=== PATIENT | male | born 1945 | race Caucasian/White ===

== ENCOUNTER 2017-03-13 20:10 | Emergency (ER) | payer OTHER ==
--- NOTE | 2017-03-13 21:32 | DIAGNOSTIC IMAGING REPORT ---
PROCEDURE: XR NASAL BONES INDICATION: TRAUMA/INJURY TECHNIQUE: Three views. COMPARISON: None. FINDINGS: Nasal bones appear normal. No evidence of fracture. There is an air-fluid level in the right maxillary sinus. While no definite fractures identified, an occult fracture might be considered. IMPRESSION: 1. Normal nasal bones. 2. Air-fluid level in the right maxillary sinus. Consider acute sinusitis or occult fracture.
--- NOTE | 2017-03-13 21:34 | DIAGNOSTIC IMAGING REPORT ---
PROCEDURE: XR KNEE 4 VIEWS - LEFT INDICATION: TRAUMA/INJURY TECHNIQUE: Four views. COMPARISON: None. FINDINGS: Findings suggest an old lateral tibial plateau fracture. There is severe degenerative changes of the medial compartment and left patellofemoral joint. Unfused ossicle of the tibial tuberosity consistent with old [place]- Schlatter disease. There is no evidence of acute fracture. IMPRESSION: 1. Findings suggest old fracture of the left lateral tibial plateau. 2. Severe degenerative changes of the left knee (medial compartment and left patellofemoral joint). 3. Old [place]-Schlatter disease. 4. No evidence of acute fracture.
--- NOTE | 2017-03-13 21:34 | DIAGNOSTIC IMAGING REPORT ---
PROCEDURE: XR KNEE 4 VIEWS - LEFT INDICATION: TRAUMA/INJURY TECHNIQUE: Four views. COMPARISON: None. FINDINGS: Findings suggest an old lateral tibial plateau fracture. There is severe degenerative changes of the medial compartment and left patellofemoral joint. Unfused ossicle of the tibial tuberosity consistent with old Nedra- Schlatter disease. There is no evidence of acute fracture. IMPRESSION: 1. Findings suggest old fracture of the left lateral tibial plateau. 2. Severe degenerative changes of the left knee (medial compartment and left patellofemoral joint). 3. Old [place]-Schlatter disease. 4. No evidence of acute fracture.
--- NOTE | 2017-03-13 21:35 | DIAGNOSTIC IMAGING REPORT ---
PROCEDURE: XR CERVICAL SPINE 2 OR 3 VIEW INDICATION: NECK TRAUMA/INJURY TECHNIQUE: Three views. COMPARISON: None. FINDINGS: There are mild degenerative changes of the facet joints with mild disc space narrowing at C6-7. Alignment is normal. No evidence of an acute process or fracture. IMPRESSION: 1. Mild degenerative changes of the cervical spine.
--- NOTE | 2017-03-13 22:02 | ED CLINICAL REPORT ---
Clinical Report - Physicians/Mid Levels [facility] [address] [place] [address] 03/13/2017 20:12 Patient: YAW PHAN Time Seen: 20:19; initial patient contact, initial documentation, patient care assumed. Arrived- By ambulance. Historian- patient and family. HISTORY OF PRESENT ILLNESS Chief Complaint: FALL. Location of injuries- nose, neck and left knee. The injury occurred just prior to arrival. Fell from a height while walking and landed on a concrete surface; tripped (tripped over curb). Occurred on a street. The patient complains of moderate pain. No blow to the head, loss of consciousness or seizure. The patient complains of neck pain. Not dazed. REVIEW OF SYSTEMS No numbness, dizziness, loss of vision, chest pain or difficulty breathing. No weakness, headache, abdominal pain or laceration. He has no pain on weight bearing. All systems otherwise negative, except as recorded above. PAST HISTORY See nurses notes. SURGERY HX: Cholecystectomy. Right knee surgery (replacement). --20:39 Juanito Hathaway R.N. PROBLEMS: Hyperlipidemia. Arthritis. --20:36 Juanito Hathaway R.N. DVT - Deep Venous Thrombosis. --20:37 Juanito Hathaway R.N. SOCIAL HISTORY Never smoker. No alcohol use or drug use. No recent travel. Is a local resident. FAMILY HISTORY No significant family medical history. ADDITIONAL NOTES The nursing notes have been reviewed with agreement regarding the chief complaint, HPI, ROS, PMH and patient medications and allergies. PHYSICAL EXAM Vital Signs: 03/13/2017 20:14 BP: 141/73. HR: 80. RR: 18. O2 saturation: 100%. Temp: 98 F. Pain level now: 8/10. Have been reviewed as normal and appear to be correct. Appearance: Alert. Oriented X3. No acute distress. Head: Head non-tender. No swelling of head. Eyes: Pupils equal, round and reactive to light. EOM intact. ENT: No dental injury. Pharynx normal. Nose: dried nasal blood on the right side and left side and mild tenderness and swelling (nose prongs on, captain room service per ems, removed during exam and left off). No laceration. No abrasion, puncture wound or deformity over the nose. No erythema, septal hematoma or foreign body. Neck: Painful ROM in the neck. Pain in the neck upon movement. No decreased ROM or muscle spasm in the neck. Tenderness present. Mild vertebral tenderness of the mid cervical spine. CVS: Heart sounds normal. Pulses normal. Respiratory: Breath sounds normal. Chest nontender. Abdomen: No visible injury. Soft and nontender. Back: No tenderness. ROM normal. Skin: Skin intact. Skin warm and dry. Normal skin color. Normal skin turgor. Extremities: Abnormal inspection. Extremities not atraumatic. Pelvis stable. Left knee: mild tenderness and small abrasion and ecchymosis located in the patella. No ligamentous laxity present. No joint effusion. No erythema, swelling, laceration, puncture wound or foreign body. No deformity. No limitation in ROM. Neurovascular not intact distally. No lower extremity edema. Neuro: Oriented X 3. No motor deficit. No sensory deficit. LABS, X-RAYS, AND EKG X-Rays: Nasal series negative. C-spine series negative. Left knee negative. The X-rays were interpreted by the radiologist and contemporaneously by me and discussed with the radiologist. Interpretation time: 21:44. The X-rays were interpreted by the radiologist and contemporaneously by me and discussed with the radiologist. Interpretation time: 21:44. The X-rays were interpreted by the radiologist and contemporaneously by me and discussed with the radiologist. Interpretation time: 21:44. PROGRESS AND PROCEDURES Course of Care: 2049. nasal prongs still off, no active bleeding, spouse at bedside and very pale and c/o of being lightheaded, bp and blood sugar checked and pt placed in wheelchair, encouraged him to check in, but he was declining. Patient counseled in person regarding the patient's stable condition, test results and diagnosis. 21:45. Differential Diagnosis: Other possible considerations: fall, head injury, fx, sprains, contusions, lacs, abrasions. Above considerations are based on history, physical exam, reassessment and X-Ray data. Differential diagnosis was discussed with patient. Disposition: Discharged home in good and improved condition (22:02). Condition: good and stable. CLINICAL IMPRESSION Fall on same level by tripping. Acute anterior, transient, mild epistaxis Acute cervical strain. Multiple contusions with abrasion to the nose and left knee. INSTRUCTIONS Apply ice for 20 minutes four times a day for two days until better. Don't apply ice directly to skin. Protect wound and keep wound area clean. Soak in warm soapy water twice daily. Apply neosporin twice daily. Elevate affected areas above chest level for two days until better. Warnings: GENERAL WARNINGS: Return or contact your physician immediately if your condition worsens or changes unexpectedly, if not improving as expected, or if other problems arise. SPECIFICALLY, return if you develop incontinence of urine (loss of bladder control). chest pain, trouble breathing, abdominal pain. Prescription Medications: Ultram 50 mg tablets: take 1-2 orally every 6 hours as needed for pain. Dispense twenty (20). No refills. Substitution is permissible. Follow-up: Follow up with your doctor in about three days even if well. Call for an appointment. Summary of care provided to patient. Understanding of the discharge instructions verbalized by patient. (Electronically signed by Cira Henriquez A.R.N.P. 03/13/2017 23:01)
--- NOTE | 2017-03-13 22:02 | ED ORDER SUMMARY ---
..... Patient: YAW PHAN OrderSheet [facility] VisitID: [id number] [place] [address] 71y, M Registration Date/Time: 03/13/2017 ORDER SHEET Weight: 72.5 kg (stated) Allergies: Unknown GENERAL ORDERS: Nasal Bones Urgent (20:32 03/13/2017 HBivens A.R.N.P.) (Ack 20:34 RKaruga) (21:26 MCampbell) Cervical Spine 2 or 3V Urgent (20:32 03/13/2017 HBivens A.R.N.P.) (Ack 20:34 RKaruga) (21:26 MCampbell) Knee 4V Left Urgent (20:32 03/13/2017 HBivens A.R.N.P.) (Ack 20:34 RKaruga) (21:26 MCampbell) MEDICATION ORDERS: Toradol IM 60 mg (NOW) (20:32 03/13/2017 HBivens A.R.N.P.) (Ack 20:40 Elana R.N.) (20:55 Elana R.N.) IV FLUIDS: ORDER SHEET NOTES: [Electronically signed by Juanito Hathaway R.N. (22:34 03/13/2017)] [Electronically signed by Cira Henriquez.R.N.P. (23:01 03/13/2017)] [Electronically locked/signed by Juanito Hathaway R.N. (22:34 03/13/2017)]
--- NOTE | 2017-03-13 22:02 | ED NURSING NOTES ---
Clinical Report - Nurses [facility] [place] [address] 03/13/2017 20:12 Patient: YAW PHAN TRIAGE Triage time 20:14. Acuity: LEVEL 3. Chief Complaint: NOSEBLEED and (nasal trauma). --20:23 Juanito Hathaway R.N. 20:14 03/13/17. BP: 141/73. HR: 80. RR: 18. O2 saturation: 100%. Temp: 98 F (oral). Pain level now: 05/18. --20:23 Juanito Hathaway R.N. Weight: 72.5 kg stated. Height/Length: 67 inches Per Patient. BMI: 25.1. --20:21 Juanito Hathaway R.N. Medications Unable to Obtain. Unknown. --20:37 Juanito Hathaway R.N. Allergies Unknown. --20:38 Juanito Hathaway R.N. History Arrived by EMS. Historian: EMS. ( GLF tripped and fell, hit her face on the cement ground. Denies LOC, injured her nose. Also c/o left lateral neck pain enroute to the hospital, left rib cage area, upper gum and left knee.). This started just prior to arrival. Treatment TAP GRINDER: (nasal clip from EMS). PAST MEDICAL HX: Unknown. Immunizations: status is unknown. --20:23 Juanito Hathaway R.N. SURGERY HX: Cholecystectomy. Right knee surgery (replacement). --20:39 Juanito Hathaway R.N. PROBLEMS: Hyperlipidemia. Arthritis. --20:36 Juanito Hathaway R.N. DVT - Deep Venous Thrombosis. --20:37 Juanito Hathaway R.N. Interventions ID band on patient. To room. --20:23 Juanito Hathaway R.N. PHYSICAL ASSESSMENT To room via stretcher. GENERAL / NEURO / PSYCH: Alert. Appears in no acute distress. Appears in pain and anxious. ( GCS 14/15, pleasantly confused (normal baseline)). Pupillary exam: Right pupil 3mm, round and briskly reactive to light directly and with accommodation. Left pupil: 3mm, round and briskly reactive to light directly and with accommodation. HEENT: ( pain on top of her head). Pupils equal, round and reactive to light. Nasal injury: tenderness and laceration with bleeding involving the bridge of the nose. Nose: tenderness, swelling, dried nasal blood and deformity. RESPIRATORY: Respirations not labored. CVS: Capillary refill less than 2 seconds. EXTREMITIES: Extremity pulses are within normal limits. Extremities exhibit normal ROM. SKIN: The patient has an superficial abrasion on the left knee. Skin is warm and dry. --20:30 Juanito Hathaway R.N. NURSING PROGRESS NOTES Cold pack applied to nose. Head of bed elevated 60 degrees. Reassurance given. Patient identifiers checked. Call light placed in reach. Side rails up x 1. Bed placed in lowest position. Brakes of bed on. Patient ready for evaluation- CIVIL RIGHTS INVESTIGATOR notified. --20:32 Juanito Hathaway R.N. 20:50 03/13/2017 Toradol (Ketorolac Tromethamine) IM 60 mg given. Given in the right deltoid and left deltoid (split dose). Allergies verified and confirmed 5 rights. --20:55 Juanito Hathaway R.N. 22:10. Reassessment after procedure and medication administered. He is calm and resting quietly. Overall patient status is improved- he states feels better. GENERAL / NEURO / PSYCH: The patient reports headache. Alert. RESPIRATORY: No respiratory distress. Breath sounds normal. CVS: Capillary refill less than 2 seconds. SKIN: Skin is warm and dry. --22:31 Juanito Hathaway R.N. DISPOSITION / DISCHARGE Condition at departure: improved. Ability to learn limited by dementia; teaching performed with the family. Discharge instructions provided and reviewed with the family (daughter). Reviewed medication(s) side effects, precautions, dosing and course information. Prescription(s) given to the blender laborer. Reviewed referral to a primary care physician for followup. Family verbalized understanding. Written instructions provided in Syriac. Verbalized understanding (daughter). The patient was discharged by the nurse practitioner. He was discharged home and accompanied by family. He left the Emergency Department in a wheelchair and via private vehicle. Family member driving. --22:33 Juanito Hathaway R.N. 22:30 03/13/17. BP: 128/76. HR: 79. RR: 16. O2 saturation: 100%. Temp: 98 F. Pain level now: cannot qualify. --22:33 Juanito Hathaway R.N. Departure time: :33. --22:33 Juanito Hathaway R.N. Locked/Released at 03/13/2017 22:34 by Juanito Hathaway R.N.
--- NOTE | 2017-03-13 22:02 | ED NURSING NOTES ---
Clinical Report - Nurses [facility] [address] 03/13/2017 20:12 Patient: YAW PHAN TRIAGE Triage time 20:14. Acuity: LEVEL 3. Chief Complaint: NOSEBLEED and (nasal trauma). --20:23 Juanito Hathaway R.N. 20:14 03/13/17. BP: 141/73. HR: 80. RR: 18. O2 saturation: 100%. Temp: 98 F (oral). Pain level now: 05/18. --20:23 Juanito Hathaway R.N. Weight: 72.5 kg stated. Height/Length: 67 inches Per Patient. BMI: 25.1. --20:21 Juanito Hathaway R.N. Medications Unable to Obtain. Unknown. --20:37 Juanito Hathaway R.N. Allergies Unknown. --20:38 Juanito Hathaway R.N. History Arrived by EMS. Historian: EMS. ( GLF tripped and fell, hit her face on the cement ground. Denies LOC, injured her nose. Also c/o left lateral neck pain enroute to the hospital, left rib cage area, upper gum and left knee.). This started just prior to arrival. Treatment SURFACE LOGGING SYSTEMS LOGGER: (nasal clip from EMS). PAST MEDICAL HX: Unknown. Immunizations: status is unknown. --20:23 Juanito Hathaway R.N. SURGERY HX: Cholecystectomy. Right knee surgery (replacement). --20:39 Juanito Hathaway R.N. PROBLEMS: Hyperlipidemia. Arthritis. --20:36 Juanito Hathaway R.N. DVT - Deep Venous Thrombosis. --20:37 Juanito Hathaway R.N. Interventions ID band on patient. To room. --20:23 Juanito Hathaway R.N. PHYSICAL ASSESSMENT To room via stretcher. GENERAL / NEURO / PSYCH: Alert. Appears in no acute distress. Appears in pain and anxious. ( GCS 14/15, pleasantly confused (normal baseline)). Pupillary exam: Right pupil 3mm, round and briskly reactive to light directly and with accommodation. Left pupil: 3mm, round and briskly reactive to light directly and with accommodation. HEENT: ( pain on top of her head). Pupils equal, round and reactive to light. Nasal injury: tenderness and laceration with bleeding involving the bridge of the nose. Nose: tenderness, swelling, dried nasal blood and deformity. RESPIRATORY: Respirations not labored. CVS: Capillary refill less than 2 seconds. EXTREMITIES: Extremity pulses are within normal limits. Extremities exhibit normal ROM. SKIN: The patient has an superficial abrasion on the left knee. Skin is warm and dry. --20:30 Juanito Hathaway R.N. NURSING PROGRESS NOTES Cold pack applied to nose. Head of bed elevated 60 degrees. Reassurance given. Patient identifiers checked. Call light placed in reach. Side rails up x 1. Bed placed in lowest position. Brakes of bed on. Patient ready for evaluation- MAGNETIC TAPE COMPOSER OPERATOR notified. --20:32 Juanito Hathaway R.N. 20:50 03/13/2017 Toradol (Ketorolac Tromethamine) IM 60 mg given. Given in the right deltoid and left deltoid (split dose). Allergies verified and confirmed 5 rights. --20:55 Juanito Hathaway R.N. 22:10. Reassessment after procedure and medication administered. He is calm and resting quietly. Overall patient status is improved- he states feels better. GENERAL / NEURO / PSYCH: The patient reports headache. Alert. RESPIRATORY: No respiratory distress. Breath sounds normal. CVS: Capillary refill less than 2 seconds. SKIN: Skin is warm and dry. --22:31 Juanito Hathaway R.N. DISPOSITION / DISCHARGE Condition at departure: improved. Ability to learn limited by dementia; teaching performed with the family. Discharge instructions provided and reviewed with the family (daughter). Reviewed medication(s) side effects, precautions, dosing and course information. Prescription(s) given to the grapple yarder operator. Reviewed referral to a primary care physician for followup. Family verbalized understanding. Written instructions provided in Greenlandic. Verbalized understanding (daughter). The patient was discharged by the nurse practitioner. He was discharged home and accompanied by family. He left the Emergency Department in a wheelchair and via private vehicle. Family member driving. --22:33 Juanito Hathaway R.N. 22:30 03/13/17. BP: 128/76. HR: 79. RR: 16. O2 saturation: 100%. Temp: 98 F. Pain level now: cannot qualify. --22:33 Juanito Hathaway R.N. Departure time: :33. --22:33 Juanito Hathaway R.N. Locked/Released at 03/13/2017 22:34 by Juanito Hathaway R.N.
--- NOTE | 2017-03-13 22:02 | ED ORDER SUMMARY ---
..... Patient: YAW PHAN OrderSheet [facility] VisitID: [id number] [place] [address] 71y, M Registration Date/Time: 03/13/2017 ORDER SHEET Weight: 72.5 kg (stated) Allergies: Unknown GENERAL ORDERS: Nasal Bones Urgent (20:32 03/13/2017 HBivens A.R.N.P.) (Ack 20:34 RKaruga) (21:26 MCampbell) Cervical Spine 2 or 3V Urgent (20:32 03/13/2017 HBivens A.R.N.P.) (Ack 20:34 RKaruga) (21:26 MCampbell) Knee 4V Left Urgent (20:32 03/13/2017 HBivens A.R.N.P.) (Ack 20:34 RKaruga) (21:26 MCampbell) MEDICATION ORDERS: Toradol IM 60 mg (NOW) (20:32 03/13/2017 HBivens A.R.N.P.) (Ack 20:40 Elana R.N.) (20:55 Elana R.N.) IV FLUIDS: ORDER SHEET NOTES: [Electronically signed by Juanito Hathaway R.N. (22:34 03/13/2017)] [Electronically signed by Cira Henriquez.R.N.P. (23:01 03/13/2017)] [Electronically locked/signed by Juanito Hathaway R.N. (22:34 03/13/2017)]
--- NOTE | 2017-03-13 23:02 | ED DISCHARGE INSTRUCTIONS ---
Patient: YAW PHAN General Instructions [facility] VisitID: [id number] [place] [address] 71y, M Registration Date/Time: 03/13/2017 Fall on same level by tripping. Acute anterior, transient, mild epistaxis Acute cervical strain. Multiple contusions with abrasion to the nose and left knee. INSTRUCTIONS Apply ice for 20 minutes four times a day for two days until better. Don't apply ice directly to skin. Protect wound and keep wound area clean. Soak in warm soapy water twice daily. Apply neosporin twice daily. Elevate affected areas above chest level for two days until better. Warnings: GENERAL WARNINGS: Return or contact your physician immediately if your condition worsens or changes unexpectedly, if not improving as expected, or if other problems arise. SPECIFICALLY, return if you develop incontinence of urine (loss of bladder control). chest pain, trouble breathing, abdominal pain. Prescription Medications: Ultram 50 mg tablets: take 1-2 orally every 6 hours as needed for pain. Dispense twenty (20). No refills. Substitution is permissible. Follow-up: Follow up with your doctor in about three days even if well. Call for an appointment. Summary of care provided to patient. Understanding of the discharge instructions verbalized by patient. ADDITIONAL INFORMATION Mechanical Fall You have had a fall today. It appears that the cause is mechanical. That means that you slipped, tripped or lost your balance. If your fall had been due to fainting or a seizure, further tests would be required. Home Care: Rest today and resume your normal activities when you are feeling back to normal. If you were injured during the fall, follow the advice from your doctor regarding care of your injury. You may use acetaminophen (Tylenol) or ibuprofen (Motrin, Advil) to control pain, unless another pain medicine was prescribed. [NOTE: If you have chronic liver or kidney disease or ever had a stomach ulcer or GI bleeding, talk with your doctor before using these medicines.] Fall Prevention: Was there anything that caused your fall that can be fixed, removed, or replaced? Make your home safe by keeping walkways clear of objects you may trip over. Use non-slip pads under rugs. Do not walk in poorly lit areas. Do not stand on chairs or wobbly ladders. Use caution when reaching overhead or looking upward. This position can cause a loss of balance. Be sure your shoes fit properly, have non-slip bottoms and are in good condition. Be cautious when going up and down curbs, and walking on uneven sidewalks. If your balance is poor, consider using a cane or walker. Stay as active as you can. Balance, flexibility, strength, and endurance all come from exercise. They all play a role in preventing falls. Follow Up with your doctor or as advised by our staff. Get Prompt Medical Attention if any of the following occur: Repeated mechanical falls, or unexplained falls Dizziness, fainting or seizure Severe headache Chest pain or shortness of breath Palpitations (very rapid or very slow or irregular heartbeat) Blood in vomit, stools (black or red color) Weakness of an arm or leg or one side of the face Difficulty with speech or vision Neck Sprain Or Strain A sudden force that causes turning or bending of the neck (such as in a car accident) can stretch or tear muscles (strain) and ligaments (sprain) and cause neck pain. Sometimes neck pain occurs after a simple awkward movement. In either case, muscle spasm is commonly present and contributes to the pain. Unless you had a forceful physical injury (for example, a car accident or fall), X-rays are usually not ordered for the initial evaluation of neck pain. If pain continues and dose not respond to medical treatment, X-rays and other tests may be performed at a later time. Home care The following guidelines will help you care for your injury at home: You may feel more soreness and spasm the first few days after the injury. Reduce your activity level until symptoms begin to improve. When lying down, use a comfortable pillow that supports the head and keeps the spine in a neutral position. The position of the head should not be tilted forward or backward. Use ice packs (ice in a plastic bag, wrapped in a towel) to treat acute pain. Apply for 20 minutes every 24 hours during the first two days. Then, begin local heat (hot shower, hot bath or heating pad) andmassageto reduce muscle spasm. Some patients feel best alternating hot and cold treatments, or just staying with one method only. Do what feels the best to you and gives the most relief. You may use acetaminophen or ibuprofen to control pain, unless another pain medicine was prescribed.If you have chronic liver or kidney disease or ever had a stomach ulcer or GI bleeding, talk with your doctor before using these medicines. Follow-up care Follow up with your physician or this facility if your symptoms do not show signs of improvement. Physical therapy may be needed. If you had X-rays today, they didnt show any broken bones, breaks, or fractures. Sometimes fractures dont show up on the first X-ray. Bruises and sprains can sometimes hurt as much as a fracture. These injuries can take time to heal completely. If your symptoms dont improve or they get worse, talk with your doctor. You may need a repeat X-ray. When to seek medical care Get prompt medical attention if any of the following occur: Pain becomes worse or spreads into your arms Weakness or numbness in one or both arms Neck Pain [No Trauma] There are several possible causes of neck pain without injury: You can get a minor ligament sprain or muscle strain from a sudden minor neck movement. Sleeping with your neck in an awkward position can also cause this. Some persons respond to emotional stress by tensing the muscles of their neck, shoulders and upper back. Chronic spasm in these muscles can cause neck pain and sometimes headaches. Gradualwear and tearof the joints in the spine can cause degenerative arthritis.This can be a source of occasional or chronic neck pain. With aging or repeated small injuries to the neck, the spinal disks (the cushions between each spinal bone) may bulge and put pressure on a nearby spinal nerve. This causes tingling, pain or numbness spreading from the neck to the shoulder, arm or hand on one side. Acute neck pain usually gets better in one to two weeks. Neck pain related to disk disease, arthritis in the spinal joints or spinal stenosis (narrowing of the spinal canal) can become chronic and last for months or years. Unless you had a forceful physical injury (for example, a car accident or fall), X-rays are usually not ordered for the initial evaluation of neck pain. If pain continues and does not respond to medical treatment, x-rays and other tests may be performed at a later time. Home Care: Rest and relax the muscles. Use a comfortable pillow that supports the head and keeps the spine in a neutral position. The position of the head should not be tilted forward or backward. A rolled up towel may help for a custom fit. Some persons find relief with heat (hot shower, hot bath or heating pad) and massage, while others prefer cold packs (crushed or cubed ice in a plastic bag, wrapped in a towel) . Try both and use the method that feels best for 20 minutes several times a day. You may use acetaminophen (Tylenol) or ibuprofen (Motrin, Advil) to control pain, unless another medicine was prescribed. [ NOTE : If you have chronic liver or kidney disease or ever had a stomach ulcer or GI bleeding, talk with your doctor before using these medicines.] Follow Up with your physician or this facility if your symptoms do not show signs of improvement after one week. Physical therapy or further tests may be needed. [NOTE: A radiologist will review any X-rays or CT scans that were taken. We will notify you of any new findings that may affect your care.] Get Prompt Medical Attention if any of the following occur: Pain becomes worse or spreads into one or both arms Weakness or numbness in one or both arms Increasing headache Neck swelling, difficulty or painful swallowing Fever of 100.4F (38C) or higher, or as directed by your healthcare provider Contusion,Soft Tissue You have a CONTUSION, which is a bruise with swelling and some bleeding under the skin. There are no broken bones. This injury takes a few days to a few weeks to heal. Home Care: 1) Keep the injured part elevated to reduce pain and swelling. This is especially important during the first 48 hours. 2) Make an ice pack (ice cubes in a plastic bag, wrapped in a towel) and apply for 20 minutes every 1-2 hours the first day. Continue this 3-4 times a day until the pain and swelling goes away. 3) You may use acetaminophen (Tylenol) or ibuprofen (Motrin, Advil) to control pain, unless another pain medicine was prescribed. [ NOTE : If you have chronic liver or kidney disease or ever had a stomach ulcer or GI bleeding, talk with your doctor before using these medicines.] Follow Up with your doctor or this facility if you are not improving within the next THREE days. [NOTE: If X-rays were taken, they will be reviewed by a radiologist. You will be notified of any new findings that may affect your care.] Get Prompt Medical Attention if any of the following occur: -- Pain or swelling increases -- Injured arm or leg becomes cold, blue, numb or tingly -- Redness, warmth or drainage from the skin Nasal Contusion You have a contusion (bruising) of the nose. There appears to be no broken bones. A contusion may cause pain, swelling, stuffiness of the nose and sometimes bleeding. Home Care: 1) Apply an ice pack to the nose for 10 minutes every 2 hours during the first 24 hours to reduce pain and swelling. Continue this four times a day for the next two days. 2) You may use acetaminophen (Tylenol) or ibuprofen (Motrin, Advil) to control pain, unless another medicine was prescribed. [ NOTE : If you have chronic liver or kidney disease or ever had a stomach ulcer or GI bleeding, talk with your doctor before using these medicines.] Talk to your doctor if you are taking aspirin or blood thinners (coumadin). These will promote nose bleeding. Your dose may need to be adjusted. 3) Avoid blowing your nose for the first two days. Then, do so gently so you don't cause bleeding. 4) Avoid alcohol and hot liquids for the next two days. Alcohol or hot liquids in your mouth can dilate blood vessels in your nose and cause bleeding. Follow Up with your doctor or as advised by our staff. If your nose appears crooked , when the swelling goes down, contact an ENT doctor (nose specialist) for an appointment within seven days of injury. [NOTE: If X-rays were taken, they will be reviewed by a radiologist. You will be notified of any new findings that may affect your care.] Get Prompt Medical Attention if any of the following occur: Bleeding from the nose that is not controlled by pinching the nostrils together for 15 minutes Increasing facial swelling, pain or redness Fever of 100.4F (38C) Unable to breathe from both sides of the nose after swelling goes down Sinus pain Repeated vomiting Severe or worsening headache or dizziness Unusual drowsiness, or unable to awaken as usual Confusion or change in behavior or speech Convulsion (seizure) Contusion:Lower Extremity You have a CONTUSION of your LOWER extremity (leg, knee, ankle, foot, or toes). This causes local pain, swelling and sometimes bruising. There are no broken bones. This injury may take from a few days to a few weeks to heal. Home Care: 1) Keep your leg elevated to reduce pain and swelling. When sleeping, place a pillow under the injured leg. When sitting, support the injured leg so it is level with your waist. This is very important during the first 48 hours. 2) If CRUTCHES have been advised, do not bear full weight on the injured leg until you can do so without pain. You may return to sports when you are able to hop and run on the injured leg without pain. 3) Apply an ice pack (ice cubes in a plastic bag, wrapped in a towel) over the injured area for 20 minutes every 1-2 hours the first day for pain relief. Continue this 3-4 times a day until the pain and swelling goes away. 4) You may use acetaminophen (Tylenol) or ibuprofen (Motrin, Advil) to control pain, unless another pain medicine was prescribed. [ NOTE : If you have chronic liver or kidney disease or ever had a stomach ulcer or GI bleeding, talk with your doctor before using these medicines.] Follow Up with your doctor or this facility if you are not starting to improve within the next THREE days. [NOTE: If X-rays were taken, they will be reviewed by a radiologist. You will be notified of any new findings that may affect your care.] Get Prompt Medical Attention if any of the following occur: -- Pain or swelling increases -- Toes become cold, blue, numb or tingly -- Redness, warmth or drainage from the skin Nosebleed [Adult] Bleeding from the nose most commonly occurs due to injury or drying and cracking of the inner lining of the nose. This can occur during a "common cold," "hay fever" attack, a very hot day, or from dry air in the winter. High blood pressure and hardening of the arteries (atherosclerosis) may also cause nosebleeds. If the bleeding site is found, it may be treated with a chemical or heat or electricity to cause a blood clot to form (cauterized). If the bleeding continues after cautery or if the bleeding site cannot be found, a packing may be placed in your nose to apply pressure and stop the bleeding. The packing may be made of gauze or sponge. A small balloon catheter is sometimes used. These need to be removed by your doctor. Some types of packing dissolve on their own. Home Care: If a packing was put in your nose, unless told otherwise, do not pull on it or try to remove it yourself. You will be given an appointment to have it removed. You may also have been given antibiotics to prevent a sinus infection. If so, complete all the medicine. Do not blow your nose for 12 hours after the bleeding stops. This will allow a strong blood clot to form. Do not pick your nose. This may restart bleeding. Avoid alcohol and hot liquids for the next two days. Alcohol or hot liquids in your mouth can dilate blood vessels in your nose and cause bleeding to start again. Do not take ibuprofen (Advil, Motrin), naprosyn (Aleve) or aspirin-containing medicines since these thin the blood and may promote nose bleeding. You may take Tylenol (acetaminophen) for pain, unless another pain medicine was prescribed. If the bleeding starts again, sit up and lean forward to prevent swallowing blood. Pinch your nose tightly for exactly 5 minutes (watch the clock). If bleeding is not controlled, continue to pinch and call your doctor or return to this facility. If high blood pressure was a cause for your nosebleed, have your blood pressure checked again tomorrow. If you have a "cold" or "hay fever" or dry nasal membranes, lubricate the nasal passages by applying a small amount of Vaseline inside the nose with a Q-tip twice a day (morning and night). Avoid overheating your home, which can dry the air and worsen your condition. Follow Up with your doctor as advised for packing removal. Nasal packing should be rechecked or removed within 2-3 days. Get Prompt Medical Attention if any of the following occur: Another nosebleed that you cannot control Dizziness, weakness or fainting Fever of 100.4F (38C) or higher, or as directed by your healthcare provider Headache Sinus or facial pain Shortness of breath or trouble breathing Tramadol Hydrochloride Oral tablet What is this medicine? TRAMADOL (TRA ma dole) is a pain reliever. It is used to treat moderate to severe pain in adults. How should I use this medicine? Take this medicine by mouth with a full glass of water. Follow the directions on the prescription label. If the medicine upsets your stomach, take it with food or milk. Do not take more medicine than you are told to take. Talk to your book editor regarding the use of this medicine in children. Special care may be needed. What side effects may I notice from receiving this medicine? Side effects that you should report to your doctor or health primary care nurse practitioner as soon as possible: allergic reactions like skin rash, itching or hives, swelling of the face, lips, or tongue breathing difficulties, wheezing confusion itching light headedness or fainting spells redness, blistering, peeling or loosening of the skin, including inside the mouth seizures Side effects that usually do not require medical attention (report to your doctor or health primary care nurse practitioner if they continue or are bothersome): constipation dizziness drowsiness headache nausea, vomiting What may interact with this medicine? Do not take this medicine with any of the following medications: MAOIs like Carbex, Eldepryl, Marplan, Nardil, and Parnate This medicine may also interact with the following medications: alcohol or medicines that contain alcohol antihistamines benzodiazepines bupropion carbamazepine or oxcarbazepine clozapine cyclobenzaprine digoxin furazolidone linezolid medicines for depression, anxiety, or psychotic disturbances medicines for migraine headache like almotriptan, eletriptan, frovatriptan, naratriptan, rizatriptan, sumatriptan, zolmitriptan medicines for pain like pentazocine, buprenorphine, butorphanol, meperidine, nalbuphine, and propoxyphene medicines for sleep muscle relaxants naltrexone phenobarbital phenothiazines like perphenazine, thioridazine, chlorpromazine, mesoridazine, fluphenazine, prochlorperazine, promazine, and trifluoperazine procarbazine warfarin What if I miss a dose? If you miss a dose, take it as soon as you can. If it is almost time for your next dose, take only that dose. Do not take double or extra doses. Where should I keep my medicine? Keep out of the reach of children. Store at room temperature between 15 and 30 degrees C (59 and 86 degrees F). Keep container tightly closed. Throw away any unused medicine after the expiration date. What should I tell my health care provider before I take this medicine? They need to know if you have any of these conditions: brain tumor depression drug abuse or addiction head injury if you frequently drink alcohol containing drinks kidney disease or trouble passing urine liver disease lung disease, asthma, or breathing problems seizures or epilepsy suicidal thoughts, plans, or attempt; a previous suicide attempt by you or a family member an unusual or allergic reaction to tramadol, codeine, other medicines, foods, dyes, or preservatives or trying to get breast-feeding What should I watch for while using this medicine? Tell your doctor or health primary care nurse practitioner if your pain does not go away, if it gets worse, or if you have new or a different type of pain. You may develop tolerance to the medicine. Tolerance means that you will need a higher dose of the medicine for pain relief. Tolerance is normal and is expected if you take this medicine for a long time. Do not suddenly stop taking your medicine because you may develop a severe reaction. Your body becomes used to the medicine. This does NOT mean you are addicted. Addiction is a behavior related to getting and using a drug for a non-medical reason. If you have pain, you have a medical reason to take pain medicine. Your doctor will tell you how much medicine to take. If your doctor wants you to stop the medicine, the dose will be slowly lowered over time to avoid any side effects. You may get drowsy or dizzy. Do not drive, use machinery, or do anything that needs mental alertness until you know how this medicine affects you. Do not stand or sit up quickly, especially if you are an older patient. This reduces the risk of dizzy or fainting spells. Alcohol can increase or decrease the effects of this medicine. Avoid alcoholic drinks. You may have constipation. Try to have a bowel movement at least every 2 to 3 days. If you do not have a bowel movement for 3 days, call your doctor or health primary care nurse practitioner. Your mouth may get dry. Chewing sugarless gum or sucking hard candy, and drinking plenty of water may help. Contact your doctor if the problem does not go away or is severe. You have been given the following additional information: Fall, Mechanical Neck Sprain/Strain Neck Pain, No Trauma Contusion, Soft Tissue Nasal Contusion Contusion, Lower Extremity Epistaxis (Adult) Tramadol Hydrochloride Oral tablet (Electronically signed by Cira Henriquez A.R.N.P. 03/13/2017 23:01)
--- NOTE | 2017-03-13 23:02 | ED MAR SUMMARY ---
..... Medication Administration Record [facility] [address] [place] [address] Patient: YAW PHAN Visit ID: [id number] 71y, M Weight: 72.5 kg Height/Length: 67 in BMI: 25.1 ALLERGIES: Unknown Given 20:50 03/13/2017 Juanito Hathaway R.N. Medication Administered: TORADOL [IM] (KETOROLAC TROMETHAMINE), Dose: 60 mg IM. Medication Ordered: Toradol IM 60 mg (NOW).
--- NOTE | 2017-03-13 23:02 | ED MED RECONCILIATION SUMMARY ---
Patient: YAW PHAN Medication Reconciliation Report [facility] VisitID: [id number] [address] [place] [address] 71y, M Registration Date/Time: 03/13/2017 Weight: 72.5 kg Height/Length: 67 in. BMI: 25.1 ALLERGIES: Unknown The patient's Home Medications are listed below: Unable to obtain. The source(s) of the original Home Medication information: Not obtained. The following Medications were given to the patient in the Emergency Department: Toradol [IM] IM 60 mg, administered: 03/13/2017 8:50:00 PM The following Medications were prescribed to the patient: Ultram 50 mg tablets: take 1-2 orally every 6 hours as needed for pain. Dispense twenty (20). No refills. Substitution is permissible. -- Cira Henriquez A.R.N.P.
--- NOTE | 2017-03-13 23:02 | ED MED RECONCILIATION SUMMARY ---
Patient: YAW PHAN Medication Reconciliation Report [facility] VisitID: [id number] [address] [place] [address] 71y, M Registration Date/Time: 03/13/2017 Weight: 72.5 kg Height/Length: 67 in. BMI: 25.1 ALLERGIES: Unknown The patient's Home Medications are listed below: Unable to obtain. The source(s) of the original Home Medication information: Not obtained. The following Medications were given to the patient in the Emergency Department: Toradol [IM] IM 60 mg, administered: 03/13/2017 8:50:00 PM The following Medications were prescribed to the patient: Ultram 50 mg tablets: take 1-2 orally every 6 hours as needed for pain. Dispense twenty (20). No refills. Substitution is permissible. -- Cira Henriquez A.R.N.P.
--- NOTE | 2017-03-13 23:02 | ED MAR SUMMARY ---
..... Medication Administration Record Merged With [facility] [address] [place] [address] Patient: YAW PHAN Visit ID: [id number] 71y, M Weight: 72.5 kg Height/Length: 67 in BMI: 25.1 ALLERGIES: Unknown Given 20:50 03/13/2017 Juanito Hathaway R.N. Medication Administered: TORADOL [IM] (KETOROLAC TROMETHAMINE), Dose: 60 mg IM. Medication Ordered: Toradol IM 60 mg (NOW).
== END 2017-03-13 22:38 | disposition home or self-care (01) ==
LOC: ED SRH 20:10
DX: S16.1XXA Strain of muscle, fascia and tendon at neck level, initial encounter (principal); S80.02XA Contusion of left knee, initial encounter; S00.33XA Contusion of nose, initial encounter; R04.0 Epistaxis; W01.0XXA Fall on same level from slipping, tripping and stumbling without subsequent striking against object, initial encounter; Y93.9 Activity, unspecified; Y92.410 Unspecified street and highway as the place of occurrence of the external cause; Y99.9 Unspecified external cause status